=== PATIENT | female | born 1985 | race Caucasian/White ===

== ENCOUNTER → 2023-10-06 16:23 | Outpatient (REF) | payer OTHER, SELFPAY | LOC: RAD 16:23 | PROVIDERS: ATTENDING PHYSICIAN Advanced Practice Midwife; FAMILY PHYSICIAN Physician Assistant Medical | DX: N83.292 Other ovarian cyst, left side (principal) | CPT/HCPCS: 76830 ==

== ENCOUNTER → 2023-11-14 11:21 | Outpatient (REF) | payer OTHER, SELFPAY | LOC: RCS 11:21 | PROVIDERS: ATTENDING PHYSICIAN Internal Medicine Cardiovascular Disease; FAMILY PHYSICIAN Physician Assistant Medical | DX: I49.8 Other specified cardiac arrhythmias (principal) | CPT/HCPCS: 93306 ==

== ENCOUNTER → 2024-03-08 14:33 | Outpatient (REF) | payer OTHER, SELFPAY | LOC: RAD 14:33 | PROVIDERS: ATTENDING PHYSICIAN Specialist; FAMILY PHYSICIAN Physician Assistant Medical | DX: N83.202 Unspecified ovarian cyst, left side (principal) | CPT/HCPCS: 76830; 76856 ==